=== PATIENT | female | born 1990 | race Caucasian/White ===

== ENCOUNTER 2016-11-27 03:51 | Emergency (ER) | payer SELFPAY ==
[~2016-11-27] VITALS: Ht 147.3 cm; Wt 65.8 kg
[2016-11-27 04:19] VITALS: BP 132/77
[2016-11-27] MEDS ORDERED: LIDOCAINE 1%-EPI 1:100K, 20ML SQ ONE (05:00)
[2016-11-27] MEDS ORDERED: LIDOCAINE 1%, 20ML ONE (05:10)
== END 2016-11-27 05:44 | disposition home or self-care (01) ==
LOC: ED 05:37
DX: L02.31 Cutaneous abscess of buttock (principal)
CPT/HCPCS: 10060

== ENCOUNTER 2016-12-09 10:17 | Emergency (ER) | payer SELFPAY ==
[~2016-12-09] VITALS: Ht 147.3 cm; Wt 65.9 kg
[2016-12-09 10:27] VITALS: BP 146/89
== END 2016-12-09 15:31 | disposition home or self-care (01) ==
LOC: ED 13:23
DX: O20.0 Threatened abortion (principal); Z88.1 Allergy status to other antibiotic agents
CPT/HCPCS: 36415; 76805; 84702; 84703; 86850; 86900

== ENCOUNTER 2017-01-22 15:39 | Emergency (ER) | payer MEDICAID, OTHER ==
[~2017-01-22] VITALS: Ht 147.3 cm; Wt 65.6 kg
[2017-01-22 15:40] VITALS: BP 148/83
[2017-01-22] MEDS ORDERED: LIDOCAINE 1%, 20ML ONE (16:22)
[2017-01-22] MEDS ORDERED: LIDOCAINE 1%, 20ML SQ ONE (16:30)
== END 2017-01-22 17:04 | disposition home or self-care (01) ==
LOC: ED 16:58
DX: L02.415 Cutaneous abscess of right lower limb (principal)
CPT/HCPCS: 10060

== ENCOUNTER 2017-02-03 16:02 | Emergency (ER) | payer MEDICAID ==
[~2017-02-03] VITALS: Ht 147.3 cm; Wt 65.2 kg
[2017-02-03 16:04] VITALS: BP 157/98
[2017-02-03] MEDS ORDERED: PREN1TAB47 PO (16:23)
== END 2017-02-03 18:30 | disposition home or self-care (01) ==
LOC: ED 17:15
DX: Z32.01 Encounter for pregnancy test, result positive (principal); R10.84 Generalized abdominal pain
CPT/HCPCS: 36415; 84702; 84703; 99284

== ENCOUNTER 2017-10-05 02:55 | Emergency (ER) | payer MEDICAID ==
[~2017-10-05] VITALS: Ht 147.3 cm; Wt 66.8 kg
[~2017-10-05 02:55] MED LIST: PREN1TAB47 PO
[2017-10-05 02:57] VITALS: BP 176/121
[2017-10-05] MEDS ORDERED: DIPH,PERTUSS(ACELL),TET VAC/PF 0.5 ML IM-VACC ONE ×2 (03:11→03:30)
[2017-10-05] MEDS ORDERED: LIDOCAINE-MPF 1%, 5ML INFIL ONE (03:30)
== END 2017-10-05 03:54 | disposition home or self-care (01) ==
LOC: ED 03:48
DX: S01.81XA Laceration without foreign body of other part of head, initial encounter (principal); W01.0XXA Fall on same level from slipping, tripping and stumbling without subsequent striking against object, initial encounter; Y93.89 Activity, other specified; Y92.009 Unspecified place in unspecified non-institutional (private) residence as the place of occurrence of the external cause; Y99.9 Unspecified external cause status
CPT/HCPCS: 12011; 90471; 90715; 99283

== ENCOUNTER 2018-03-29 12:51 | Emergency (ER) | payer MEDICAID ==
[2018-03-29 12:58] VITALS: BP 142/88
== END 2018-03-29 13:40 ==
LOC: ED 13:34
DX: H00.021 Hordeolum internum right upper eyelid (principal); F17.210 Nicotine dependence, cigarettes, uncomplicated
CPT/HCPCS: 99283